=== PATIENT | female | born 1970 | race Hispanic/Latino ===

== ENCOUNTER 2022-04-07 08:21 | Outpatient (CLI) | payer OTHER ==
[2022-04-07] MEDS ORDERED: Iopamidol-370 76% 500 ML 1 ML ONE (09:31)
== END 2022-04-07 08:22 | disposition home or self-care (01) ==
LOC: BICCT 08:21
PROVIDERS: ATTEND Internal Medicine Gastroenterology
DX: C20 Malignant neoplasm of rectum (principal); N28.9 Disorder of kidney and ureter, unspecified
CPT/HCPCS: 71260; 74177; 82565; Q9967

== ENCOUNTER 2022-05-05 10:25 | Outpatient (CLI) | payer OTHER ==
[~2022-05-05 10:25] MED LIST: Magnevist 469MG/ML 20 ML VIAL ONE
== END 2022-05-05 10:26 | disposition home or self-care (01) ==
LOC: MRI 10:25
PROVIDERS: ATTEND Internal Medicine Hematology & Oncology
DX: C20 Malignant neoplasm of rectum (principal)
CPT/HCPCS: 72197; A9579